=== PATIENT | male | born 1990 | race Caucasian/White ===

== ENCOUNTER 2016-10-13 16:59 | Emergency (ER) | payer SELFPAY | END 2016-10-13 18:56 | disposition home or self-care (01) | LOC: ER1 16:59 | DX: R55 Syncope and collapse (principal); R10.11 Right upper quadrant pain; R00.0 Tachycardia, unspecified | CPT/HCPCS: 96360; 99283 ==

== ENCOUNTER 2016-10-15 14:26 | Emergency (ER) | payer SELFPAY ==
[2016-10-15 17:03] LABS: HEMOGLOBIN 15.2 gm/dl (14.0-17.5); RED BLOOD COUNT 4.92 M/UL (4.20-5.50); WHITE BLOOD COUNT 7.8 K/UL (4.5-11.0)
[2016-10-15 17:22] LABS: BUN/CREATININE RATIO 8 (0-10)
== END 2016-10-15 19:43 | disposition home or self-care (01) ==
LOC: ER1 14:26
PROVIDERS: Physician Assistant
DX: R10.11 Right upper quadrant pain (principal); R30.0 Dysuria; R11.2 Nausea with vomiting, unspecified
CPT/HCPCS: 36415; 76705; 80053; 81001; 83690; 84484; 85025; 93005; 99284

== ENCOUNTER → 2021-03-19 | Outpatient (CLI) | payer OTHER ==
[~2021-03-19] MED LIST: BACTROBAN OINT22 GM TOP; IBU800 MG PO; KEFLEX CAP 500500 MG PO; MACROBID 100 M100 MG PO; PYRIDIUM200 MG PO
== END ==
LOC: KOH-I 15:25
DX: S83.242A Other tear of medial meniscus, current injury, left knee, initial encounter (principal)
CPT/HCPCS: 73721